=== PATIENT | male | born 1955 | race Caucasian/White ===

== ENCOUNTER → 2020-05-16 | Outpatient (CLI) | payer OTHER ==
[~2020-05-16] MED LIST: ALEVE220 M1 PO; IBUPROFEN 400400 M1 PO; VITAMIN C1000 MG PO; VITAMIN D325 MC3 PO; ZINC SULFATE220 MG PO
== END ==
LOC: LAB 14:55
PROVIDERS: ATTEND Orthopaedic Surgery
DX: Z20.828 Contact with and (suspected) exposure to other viral communicable diseases (principal)

== ENCOUNTER 2020-05-18 10:57 | Day surgery (SDC) | payer OTHER ==
[2020-05-16 13:50] LABS: HEMATOCRIT 49.6 % (42.0-52.0); HEMOGLOBIN 16.4 gm/dL (14.0-18.0); MCH 30.5 pg (26.0-34.0); MCHC 33.2 g/dL (28.0-37.0); RBC 5.39 mil/uL (4.50-6.00); RDW 13.5 % (10.5-14.5); WBC 4.5 thou/uL (4.0-11.0)
[2020-05-16 13:50] LABS: URINE BILIRUBIN NEGATIVE (Negative); URINE BLOOD NEGATIVE (Negative); URINE CLARITY CLEAR; URINE COLOR YELLOW; URINE GLUCOSE-RANDOM* NEGATIVE (Negative); URINE KETONES NEGATIVE (Negative); URINE LEUKOCYTES-REFLEX NEGATIVE (Negative); URINE NITRITE-REFLEX NEGATIVE (Negative); URINE PROTEIN (DIPSTICK) NEGATIVE (Negative); URINE SPECIFIC GRAVITY 1.025 (1.005-1.035); URINE UROBILINOGEN 0.2 E.U./dl (0.2-1.0)
[2020-05-16 14:02] LABS: PROTIME 10.2 Seconds (9.3-11.4)
[2020-05-16 14:05] LABS: ALBUMIN 4.1 g/dL (3.4-5.0); CALCIUM 9.5 mg/dL (8.5-10.1); CREATININE 0.9 mg/dL (0.7-1.3); POTASSIUM 4.3 mmol/L (3.5-5.1)
[2020-05-18] VITALS (8 sets, daily range): BP systolic 101–149; BP diastolic 61–95
[~2020-05-18] VITALS: Ht 185.4 cm; Wt 106.6 kg
--- NOTE | 2020-05-18 17:29 | NUR ---
ASSUMED CARE AT 1620. A&O X4. PT CAME UP TO THE UNIT WITH A LOT OF PAIN. PT WAS GIVEN FENTAYL BY THE POST OP NURSE AND WAS GIVEN HYDROCODONE BY ME AROUND 1715. PT IS ON REGULAR DIET. PT IS TOLERATING ROOM AIR AT 94%. IV IS ON LEFT HAND AND D5 1/2 NS ARE GOING AT 100 ML/HR. VSS. FALL PRECAUTION .CALL LIGHT WITHIN REACH. DRESSING ON RIGHT KNEE IS INTACT. IV SITE SHOWS NO SIGNS OF REDNESS OR SWELLING. TEDS/ SCD HOSE ARE IN PLACE. POLAR CARE IS INTACT. WILL CONTINUE TO MONITOR FOR PAIN
[2020-05-19 04:10] VITALS: BP 108/65
--- NOTE | 2020-05-19 04:50 | NUR ---
ASSUMED PT CARE AT 1900.PT C/O PAIN ON HIS R KNEE,MANAGED WITH MED.PT ENCOURAGED TO USE HIS INCENTIVE SPIROMETER WHILE AWAKE.PT VOIDING PER URINAL,ADEQUATE URINE OUTPUT NOTED.PT PROGRESSING TOWARDS HIS DC GOALS.CALL LIGHT WITHIN REACH.
[2020-05-19 05:42] LABS: HEMATOCRIT 42.1 % (42.0-52.0); MCH 30.5 pg (26.0-34.0); MCHC 33.5 g/dL (28.0-37.0); MCV 90.9 fL (80.0-100.0); RBC 4.62 mil/uL (4.50-6.00); RDW 13.3 % (10.5-14.5); WBC 9.8 thou/uL (4.0-11.0)
[2020-05-19 05:50] LABS: HEMOGLOBIN 14.1 gm/dL (14.0-18.0)
[2020-05-19 07:35] VITALS: BP 115/65
--- NOTE | 2020-05-19 08:10 | NUR ---
ASSESSMENT: CM REVIEWED CHART. PT IS S/P R TKA. PT IS ALERT AND ORIENTED X4. PT REPORTS THAT HE LIVES IN A ONE STORY HOME WITH NO STEPS TO ENTER OR ONCE INSIDE WITH HIS . PT STATES THAT HE AMBULATES INDEPENDENTLY BUT DOES HAVE A CANE AND A WALKER AT HOME. PT STATES THAT HE HAS OUTPATIENT THERAPY ALREADY ARRANGED AT [facility] IN [place]. PT STATES HE IS EAGER TO WORK WITH THERAPY HE IS HOPING HE CAN DISCHARGE TODAY. PT REPORTS HAVING NO NEEDS FROM CM. CM WILL CONTINUE TO FOLLOW TO ASSIST NEEDED.
[2020-05-19 11:25] VITALS: BP 115/65
--- NOTE | 2020-05-19 11:42 | NUR ---
PT CARE ASSUMED AT 0700. A&Ox4. PT EAGER TO DISCHARGE. PAIN VERY WELL TOLERATED WITH PAIN MEDICATION ON BOARD. SCD'S/KNEE HIGH TEDS/POLARPACK IN PLACE. JONATHAN DRESSIN IN PLACE, DRY AND INTACT. IV PATENT WITH NO REDNESS OR EDEMA, SALINE LOCKED. FALL PROTOCOL IN PLACE. CALL LIGHT IN REACH. WILL CONTINUE TO MONITOR. PT DISCHARGED WITH NO FURTHER QUESTIONS.
--- NOTE | 2020-05-24 12:39 | O ---
[facility] [place] [address] OPERATIVE REPORT Name: ELSA SCOTT [place] #: [place] [facility] [place].Cassie.#: [id number] Admission: 05/18/20 Attend Phys: Drew Salvador MD Discharge: 05/19/20 Date of : 53 Report #: [id number] THIS REPORT FOR: cc: [facility] - Family physician unknown FAM - Family physician unknown Drew Salvador MD ~ CC: [facility] unknown Drew Salvador DATE OF SERVICE: 05/18/2020 PREOPERATIVE DIAGNOSIS: Right knee osteoarthritis. POSTOPERATIVE DIAGNOSIS: Right knee osteoarthritis. PROCEDURE: Right total knee arthroplasty using Navio robotic home care assistant. SURGEON: Drew Salvador MD STEAM [employer]OTHES PRESS OPERATOR: Sandie Bustos PA-C INDICATIONS FOR STEAM CLOTHES PRESS OPERATOR: Throughout the case, extensive retraction and manipulation of the knee was required. This was afforded to me by my home care assistant. ANESTHESIA: LMA with an adductor canal block. IMPLANTS: [employer] Nephew size 8 Journey II BCS cobalt chrome femur, size 7 tibia, size 10 constrained polyethylene and a size 41 patella. TOURNIQUET TIME: 62 minutes. ESTIMATED BLOOD LOSS: 25 mL. COMPLICATIONS: None. SPECIMENS: None. CONDITION UPON LEAVING THE OPERATING ROOM: Stable. INDICATIONS FOR PROCEDURE: The patient is a 65-year-old gentleman with severe right knee osteoarthritis. He had failed conservative measures for this and after discussion, he elected for right total knee arthroplasty. DESCRIPTION OF PROCEDURE: Risks, benefits, alternatives, complications were discussed in detail with the patient including but not limited to risk of anesthesia, risk of damage to nerves, arteries, blood vessels, risk for [facility] [address] [place] [address] OPERATIVE REPORT Name: ELSA SCOTT Room #: [place] [facility] [place] M.R.#: [id number] Admission: 05/18/20 Attend Phys: Drew Salvador MD Discharge: 05/19/20 Date of : 53 Report #: [id number] infection, bleeding, risk for continued knee pain, need for reoperation. Informed consent was obtained from the patient. Right knee was appropriately marked in the preoperative holding area. IV Ancef was given for preoperative antibiotics. He was brought to the operating room and placed in supine position on operating room table. LMA anesthesia was induced without complication. Tourniquet was placed on the right thigh. Right lower extremity was prepped and draped in normal sterile fashion. Timeout was performed properly identifying the patient and procedure as well as the instrumentation and implants. All in the operating room were in agreement. Right lower extremity was exsanguinated, tourniquet was inflated. Tourniquet time was 62 minutes. Standard midline approach to the knee was made with 10 blade through the skin. Dissection was taken down sharply to the fascia and deep flaps were developed medially and laterally. Fresh 10 blade was used to make a medial parapatellar arthrotomy and the knee was inspected. There was severe tricompartmental osteoarthritis. ACL and PCL were removed sharply. Reference pins were placed in the femur and the tibia. The knee was then digitally mapped using the [employer] robotic system. Intraoperative plan was made and we sized the size 8 femur with a size 7 tibia and a size 10 spacer. After acceptance of the intraoperative plan, the distal femoral cut was made with a Navio bur. Distal femoral cutting block was pinned in place and the chamfer cuts were made. Attention was then turned to the tibia. Remainder of the menisci removed with Bovie cautery. Tibial resection guide was pinned in place using the Navio for placement and tibial resection was made. Flexion and extension gaps were then checked and found to have good balance laterally in flexion and extension. There was slight laxity medially. It was felt we could make up for this with a constrained implant. Tibia was sized, found to be a size 7. A size 7 tibial trial was placed, pinned and punched. Size 8 femoral trial was placed and the box cut was made. This was then trialed with a size 10 polyethylene and a size 10 polyethylene demonstrated 1 mm of laxity laterally throughout range of motion of the knee that was about 2-3 mm medially. It was felt that we could use a constrained implant, 9 mm was resected from the posterior surface of the patella and a size 41 patellar trial was placed. Knee was taken through range of motion, found to be stable, found to have good patellar tracking. Trial components were removed. Bony ends were thoroughly irrigated with normal saline. A final size 7 tibia, size 8 Journey II BCS cobalt chrome femur and a size 41 patella were cemented in place using standard cementation techniques. While the cement cured, a periarticular injection consisting of morphine, ropivacaine, epinephrine and Toradol was placed around the knee joint capsule. After the cement cured, the tourniquet was deflated. Hemostasis was obtained with Bovie cautery. Final size 10 constrained polyethylene was placed. A gram of vancomycin was placed deep in the joint. Fascia was closed with 0 Vicryl. Skin was closed with 2-0 Vicryl, skin staple and a JONATHAN dressing was applied. The patient tolerated this [address] [address] OPERATIVE REPORT Name: ELSA SCOTT Room #: [place] [facility] [place] Ozzy#: [id number] Admission: 05/18/20 Attend Phys: Drew Salvador MD Discharge: 05/19/20 Date of : 53 Report #: [id number] procedure well and went to the recovery room under care of anesthesia postoperatively. <ELECTRONICALLY SIGNED> By: Drew Salvador MD 05/24/20 [id number] Drew Salvador MD /nt
== END 2020-05-19 11:48 | disposition home or self-care (01) ==
LOC: OR 10:57 → 4S 16:20 → OR 05-19 11:48
PROVIDERS: ATTEND Orthopaedic Surgery
DX: M17.11 Unilateral primary osteoarthritis, right knee (principal); M25.561 Pain in right knee; Z98.890 Other specified postprocedural states; Z79.899 Other long term (current) drug therapy; Z88.8 Allergy status to other drugs, medicaments and biological substances
CPT/HCPCS: 50010; 50101; 50415; 50954; 51130; 51225; 51320; 51412; 53000; 53078; 56527; 56528; 57095; 57103; 57110; 57127; 57180; 58239; 62110; 62900; 64039; 70005